=== PATIENT | female | born 1950 | race African-American/Black ===

== ENCOUNTER 2018-06-20 02:09 | Emergency (ER) | payer MEDICARE, OTHER ==
[~2018-06-20] VITALS: Ht 162.6 cm; Wt 134.1 kg
[~2018-06-20 02:09] MED LIST: AMOX250C4 PO; ASPI-556 PO; FERR1TAB85 PO; HYDR-309 PO; LEVO25TA4 PO; LISI-660 PO; METF-444 PO
[2018-06-20] MEDS ORDERED: TRAM50TA4 PO (02:21)
[2018-06-20] MEDS ORDERED: ALBU8HFA IH (02:21)
[2018-06-20 02:24] LABS: GLUCOSE,POINT OF CARE 125 MG/DL (70-110)
[2018-06-20 03:11] LABS: EOSINOPHILS % (AUTO) 1.8 % (1.0-6.0); HEMATOCRIT 35.9 % (36-46); HEMOGLOBIN 11.6 g/dL (12.0-16.0); LYMPHOCYTES # (AUTO) 2.7 K/uL (1.0-4.8); LYMPHOCYTES % (AUTO) 38.3 % (22.0-44.0); MEAN CORPUSCULAR HEMOGLOBIN 28.6 pg (26.0-34.0); MEAN CORPUSCULAR HGB CONC 32.2 G/dL (31.0-37.0); MEAN CORPUSCULAR VOLUME 89 fL (80-100); MONOCYTES # (AUTO) 0.7 K/uL (0.1-1.0); MONOCYTES % (AUTO) 9.4 % (2.0-9.0); NEUTROPHILS # (AUTO) 3.5 K/uL (1.8-7.7); NEUTROPHILS % (AUTO) 49.5 % (40.0-70.0); PLATELET COUNT (AUTO) 198 K/uL (150-450); RED BLOOD CELL COUNT(AUTO) 4.04 MIL/uL (4.00-5.20); RED CELL DISTRIBUTION WIDTH 14.3 % (11.5-14.5)
[2018-06-20 03:16] LABS: APPEARANCE,URINE CLEAR (CLEAR); BILIRUBIN,URINE NEGATIVE (NEGATIVE); GLUCOSE, URINE (UA) NEGATIVE (NEGATIVE); KETONES,URINE NEGATIVE (NEGATIVE); LEUKOCYTE ESTERASE ,URINE NEGATIVE (NEGATIVE); NITRATE,URINE NEGATIVE (NEGATIVE); OCCULT BLOOD,URINE NEGATIVE (NEGATIVE); PROTEIN,URINE NEGATIVE (NEGATIVE)
[2018-06-20 03:19] LABS: ANION GAP 6 mmol/L (8-16); CARBON DIOXIDE 27 mmol/L (22-29); CHLORIDE 107 mmol/L (98-107); CREATININE 0.95 mg/dL (0.60-1.30); GLOMERULAR FILTR. RATE CALC > 60 mL/min (>60); GLUCOSE,RANDOM 128 mg/dL (70-110); POTASSIUM 3.8 mmol/L (3.5-5.1); SODIUM SERUM 140 mmol/L (136-145); UREA NITROGEN, BLOOD 23 mg/dL (7-18)
[2018-06-20 03:27] LABS: B-TYPE NATRIURETIC PEPTIDE 23 pg/mL (0-100)
[2018-06-20 03:44] LABS: ALANINE AMINOTRANSFERASE 15 U/L (12-78); ALKALINE PHOSPHATASE 84 U/L (46-116); ASPARTATE AMINOTRANSFERASE 13 U/L (15-37); BILIRUBIN,TOTAL 0.2 mg/dL (0.1-1.0); CREATINE KINASE, TOTAL ONLY 87 U/L (26-192); TOTAL PROTEIN, SERUM 7.1 g/dL (6.4-8.2)
[2018-06-20] MEDS ORDERED: DICYCLOMINE HCL 20 MG TABLET PO ONE (04:45)
[2018-06-20 05:04] VITALS: BP 126/82
== END 2018-06-20 05:20 | disposition home or self-care (01) ==
LOC: EMS 02:14
DX: R07.89 Other chest pain (principal); R10.13 Epigastric pain; R42 Dizziness and giddiness; R11.0 Nausea; I11.0 Hypertensive heart disease with heart failure; I50.9 Heart failure, unspecified; E03.9 Hypothyroidism, unspecified; J45.909 Unspecified asthma, uncomplicated; Z79.82 Long term (current) use of aspirin; Z79.84 Long term (current) use of oral hypoglycemic drugs; Z79.899 Other long term (current) drug therapy; Z88.1 Allergy status to other antibiotic agents; Z91.041 Radiographic dye allergy status
CPT/HCPCS: 93005

== ENCOUNTER 2019-03-13 00:03 | Emergency (ER) | payer MEDICARE, OTHER ==
[~2019-03-13] VITALS: Ht 163.8 cm; Wt 131.8 kg
[~2019-03-13 00:03] MED LIST changes: +ALBU8HFA IH; -AMOX250C4 PO; -FERR1TAB85 PO; -HYDR-309 PO; +TRAM50TA4 PO
[2019-03-13 01:11] LABS: GLUCOSE,POINT OF CARE 152 MG/DL (70-110)
[2019-03-13] MEDS ORDERED: NITROGLYCERIN 0.4 MG SUBLINGUAL TABLET #25 SL ONE (01:45)
[2019-03-13 03:32] LABS: BASOPHILS % (AUTO) 1.6 % (0.0-2.0); EOSINOPHILS % (AUTO) 1.8 % (1.0-6.0); HEMATOCRIT 36.1 % (36-46); HEMOGLOBIN 11.7 g/dL (12.0-16.0); LYMPHOCYTES # (AUTO) 2.4 K/uL (1.0-4.8); LYMPHOCYTES % (AUTO) 32.7 % (22.0-44.0); MEAN CORPUSCULAR HEMOGLOBIN 28.8 pg (26.0-34.0); MEAN CORPUSCULAR HGB CONC 32.4 G/dL (31.0-37.0); MEAN CORPUSCULAR VOLUME 89 fL (80-100); MONOCYTES # (AUTO) 0.6 K/uL (0.1-1.0); MONOCYTES % (AUTO) 8.5 % (2.0-9.0); NEUTROPHILS # (AUTO) 4.1 K/uL (1.8-7.7); NEUTROPHILS % (AUTO) 55.4 % (40.0-70.0); PLATELET COUNT (AUTO) 215 K/uL (150-450); RED BLOOD CELL COUNT(AUTO) 4.06 MIL/uL (4.00-5.20); RED CELL DISTRIBUTION WIDTH 14.3 % (11.5-14.5)
[2019-03-13 03:33] LABS: ANION GAP 6 mmol/L (8-16); CALCIUM, TOTAL 9.1 mg/dL (8.8-10.5); CARBON DIOXIDE 31 mmol/L (22-29); CHLORIDE 106 mmol/L (98-107); CREATININE 0.71 mg/dL (0.60-1.30); GLOMERULAR FILTR. RATE CALC > 60 mL/min (>60); GLUCOSE,RANDOM 108 mg/dL (70-110); POTASSIUM 4.5 mmol/L (3.5-5.1); SODIUM SERUM 143 mmol/L (136-145); UREA NITROGEN, BLOOD 14 mg/dL (7-18)
[2019-03-13 03:40] LABS: PROTHROMBIN TIME 10.3 SEC (9.4-11.6)
[2019-03-13 03:57] LABS: ALANINE AMINOTRANSFERASE 18 U/L (12-78); ALKALINE PHOSPHATASE 104 U/L (46-116); ASPARTATE AMINOTRANSFERASE 24 U/L (15-37); BILIRUBIN,TOTAL 0.3 mg/dL (0.1-1.0); CREATINE KINASE, TOTAL ONLY 115 U/L (26-192); TOTAL PROTEIN, SERUM 6.8 g/dL (6.4-8.2)
[2019-03-13] MEDS ORDERED: ACETAMINOPHEN 325 MG TABLET PO PRN (04:00)
[2019-03-13] MEDS ORDERED: ASPIRIN 325 MG TABLET PO ONE ×2 (04:00)
[2019-03-13] MEDS ORDERED: ONDANSETRON HCL 4 MG/2 ML VIAL IVP PRN (04:00)
[2019-03-13] MEDS ORDERED: HYDR50CA9 PO (04:52)
[2019-03-13] MEDS ORDERED: LORA-1000 PO (04:52)
[2019-03-13] MEDS ORDERED: DICL75TA5 PO (04:52)
[2019-03-13] MEDS ORDERED: CYCL10 PO (04:52)
[2019-03-13] MEDS ORDERED: FAMO20 PO (04:52)
[2019-03-13] MEDS ORDERED: CIPR-278 PO (04:52)
[2019-03-13] MEDS ORDERED: PRED10 PO (04:52)
[2019-03-13] MEDS ORDERED: ATOR40TA28 PO (04:52)
[2019-03-13] MEDS ORDERED: MECL-183 PO (04:52)
[2019-03-13] MEDS ORDERED: COMP5 PO (04:52)
[2019-03-13] MEDS ORDERED: BACL10TA PO (04:52)
[2019-03-13] MEDS ORDERED: FURO40 PO (04:52)
[2019-03-13 10:02] VITALS: BP 133/69
== END 2019-03-13 10:30 | disposition short-term general hospital (02) ==
LOC: EMS 00:03
DX: R07.89 Other chest pain (principal); E11.9 Type 2 diabetes mellitus without complications; E03.9 Hypothyroidism, unspecified; I11.0 Hypertensive heart disease with heart failure; I50.9 Heart failure, unspecified; J45.909 Unspecified asthma, uncomplicated; Z98.890 Other specified postprocedural states; Z79.899 Other long term (current) drug therapy; Z79.82 Long term (current) use of aspirin; Z79.84 Long term (current) use of oral hypoglycemic drugs; Z91.041 Radiographic dye allergy status
CPT/HCPCS: 93005

== ENCOUNTER 2019-10-22 20:47 | Emergency (ER) | payer MEDICARE, OTHER ==
[~2019-10-22] VITALS: Ht 162.6 cm; Wt 134.1 kg
[~2019-10-22 20:47] MED LIST changes: +ATOR40TA28 PO; +BACL10TA PO; +CIPR-278 PO; +COMP5 PO; +CYCL10 PO; +DICL75TA5 PO; +FAMO20 PO; +FURO40 PO; +HYDR50CA9 PO; +LORA-1000 PO; +MECL-183 PO; +PRED10 PO
[2019-10-22 21:25] LABS: BASOPHILS % (AUTO) 1.3 % (0.0-2.0); HEMATOCRIT 37.1 % (36-46); LYMPHOCYTES # (AUTO) 2.8 K/uL (1.0-4.8); LYMPHOCYTES % (AUTO) 30.3 % (22.0-44.0); MEAN CORPUSCULAR HEMOGLOBIN 28.8 pg (26.0-34.0); MEAN CORPUSCULAR HGB CONC 32.4 G/dL (31.0-37.0); MEAN CORPUSCULAR VOLUME 89 fL (80-100); MONOCYTES # (AUTO) 0.9 K/uL (0.1-1.0); MONOCYTES % (AUTO) 9.4 % (2.0-9.0); NEUTROPHILS # (AUTO) 5.1 K/uL (1.8-7.7); PLATELET COUNT (AUTO) 209 K/uL (150-450); RED BLOOD CELL COUNT(AUTO) 4.17 MIL/uL (4.00-5.20); RED CELL DISTRIBUTION WIDTH 13.9 % (11.5-14.5)
[2019-10-22 21:43] LABS: CALCIUM, TOTAL 9.4 mg/dL (8.8-10.5); CREATININE 1.23 mg/dL (0.60-1.30); POTASSIUM 3.9 mmol/L (3.5-5.1)
[2019-10-22 21:50] LABS: ALBUMIN 3.1 g/dL (3.4-5.0); BILIRUBIN,TOTAL 0.3 mg/dL (0.1-1.0); TOTAL PROTEIN, SERUM 7.6 g/dL (6.4-8.2)
[2019-10-22 22:11] LABS: APPEARANCE,URINE CLEAR (CLEAR); BILIRUBIN,URINE NEGATIVE (NEGATIVE); GLUCOSE, URINE (UA) NEGATIVE (NEGATIVE); KETONES,URINE NEGATIVE (NEGATIVE); LEUKOCYTE ESTERASE ,URINE NEGATIVE (NEGATIVE); NITRATE,URINE NEGATIVE (NEGATIVE); OCCULT BLOOD,URINE NEGATIVE (NEGATIVE); PROTEIN,URINE NEGATIVE (NEGATIVE); UROBILINOGEN,URINE 0.2 mg/dL (<=1.0)
[2019-10-22 22:13] LABS: PROTHROMBIN TIME 10.4 SEC (9.4-11.6)
[2019-10-22 23:17] VITALS: BP 132/97
[2019-10-23 03:35] LABS: GLUCOSE,POINT OF CARE 161 MG/DL (70-110)
== END 2019-10-22 23:23 | disposition home or self-care (01) ==
LOC: EMS 20:47
DX: R07.2 Precordial pain (principal)
CPT/HCPCS: 93005; 36415-L1; 36415-TC; 71045-TC; 81003-TC

== ENCOUNTER 2020-02-25 17:36 | Emergency (ER) | payer MEDICARE, OTHER ==
[~2020-02-25] VITALS: Ht 167.6 cm; Wt 109.1 kg
[~2020-02-25 17:36] MED LIST changes: -ATOR40TA28 PO; -CIPR-278 PO; -COMP5 PO; -LORA-1000 PO; -MECL-183 PO; +MECL-226 PO
[2020-02-25 17:39] VITALS: BP 186/81
[2020-02-25 18:11] LABS: GLUCOSE,POINT OF CARE 106 MG/DL (70-110)
== END 2020-02-25 20:30 | disposition left against medical advice (07) ==
LOC: EMS 17:36
DX: Z00.00 Encounter for general adult medical examination without abnormal findings (principal); Z53.21 Procedure and treatment not carried out due to patient leaving prior to being seen by health care provider
CPT/HCPCS: 93005

== ENCOUNTER 2020-03-14 08:36 | Emergency (ER) | payer MEDICARE, OTHER ==
[~2020-03-14] VITALS: Ht 165.1 cm; Wt 130.9 kg
[~2020-03-14 08:36] MED LIST changes: -LISI-660 PO; +LISI-892 PO
[2020-03-14] MEDS ORDERED: AMLO-257 PO (08:43)
[2020-03-14] MEDS ORDERED: ATOR20TA86 PO (08:43)
[2020-03-14] MEDS ORDERED: LOSA50TA37 PO (08:43)
[2020-03-14 09:04] LABS: GLUCOSE,POINT OF CARE 145 MG/DL (70-110)
[2020-03-14] MEDS ORDERED: AmLODIPine BESYLATE 5 MG TABLET PO ONE (09:30)
[2020-03-14 09:41] VITALS: BP 145/88
== END 2020-03-14 09:55 | disposition home or self-care (01) ==
LOC: EMS 08:36
DX: R04.0 Epistaxis (principal); I11.0 Hypertensive heart disease with heart failure; I50.9 Heart failure, unspecified; E11.9 Type 2 diabetes mellitus without complications; J45.909 Unspecified asthma, uncomplicated

== ENCOUNTER 2021-01-28 10:14 | Emergency (ER) | payer MEDICARE, OTHER ==
[~2021-01-28] VITALS: Ht 162.6 cm; Wt 127.0 kg
[~2021-01-28 10:14] MED LIST changes: +AMLO-257 PO; +ATOR20TA86 PO; -CYCL10 PO; +CYCL10TA17 PO; +LOSA50TA37 PO; -PRED10 PO
[2021-01-28] MEDS ORDERED: HydrOXYzine PAMOATE 50 MG CAPSULE PO ONE (11:15)
[2021-01-28 12:16] VITALS: BP 184/102
== END 2021-01-28 12:47 | disposition home or self-care (01) ==
LOC: EMS 10:14
DX: F41.9 Anxiety disorder, unspecified (principal); I11.0 Hypertensive heart disease with heart failure; I50.9 Heart failure, unspecified; E78.00 Pure hypercholesterolemia, unspecified; E11.9 Type 2 diabetes mellitus without complications; J45.909 Unspecified asthma, uncomplicated; Z88.8 Allergy status to other drugs, medicaments and biological substances; Z91.041 Radiographic dye allergy status; Z79.899 Other long term (current) drug therapy; Z79.82 Long term (current) use of aspirin
CPT/HCPCS: 99283